=== PATIENT | male | born 1985 | race Caucasian/White ===

== ENCOUNTER 2016-07-19 10:21 | Emergency (ER) | payer OTHER ==
[~2016-07-19] VITALS: Ht 177.8 cm; Wt 113.8 kg
[~2016-07-19 10:21] MED LIST: DOMP10T PO; PRILOSEC40 MG PO
[2016-07-19 12:21] VITALS: BP 135/77
== END 2016-07-19 12:24 | disposition home or self-care (01) ==
LOC: EME 10:21
DX: S06.0X9A Concussion with loss of consciousness of unspecified duration, initial encounter (principal); Y04.2XXA Assault by strike against or bumped into by another person, initial encounter; Y99.0 Civilian activity done for income or pay
CPT/HCPCS: 70450; 99281; 99284

== ENCOUNTER 2017-09-11 10:00 | Emergency (ER) | payer OTHER ==
[~2017-09-11] VITALS: Ht 177.8 cm; Wt 116.1 kg
[2017-09-11 10:53] LABS: APPEARANCE CLOUDY ((CLEAR)); BILIRUBIN NEGATIVE; BLOOD SMALL; COLOR YELLOW ((YELLOW)); GLUCOSE (STRIP) NEGATIVE; KETONES NEGATIVE; LEUKOCYTES NEGATIVE; NITRITE NEGATIVE; PROTEIN (STRIP) 100; SPECIFIC GRAVITY 1.021 (1.000-1.030); UROBILINOGEN 0.2 MG/DL (0.2-1.0)
[2017-09-11 10:53] LABS: BASOPHIL (%) 0.4 % (0-1); EOSINOPHIL (%) 1.7 % (0-5); EOSINOPHIL COUNT 0.1 K/uL (0-0.3); HEMATOCRIT 45.1 % (38.0-50.0); HEMOGLOBIN 16.4 G/DL (12.5-16.6); IMMATURE GRANULOCYTE (%) 0.3 % (0.0-0.7); LYMPHOCYTE (%) 33.4 % (15-42); LYMPHOCYTE COUNT 2.5 K/uL (1.0-2.8); MCH 29.1 PG (29.0-34.0); MCHC 36.4 G/DL (30.0-36.0); MCV 80.1 FL (86-99); MONOCYTE (%) 7.2 % (3-12); MONOCYTE COUNT 0.5 K/uL (0-0.8); NEUTROPHIL COUNT 4.3 K/uL (1.8-6.4); PLATELET COUNT 239 K/uL (156-360); RBC DIS.WIDTH-CV 12.7 % (11.8-14.6); RBC DIS.WIDTH-SD 36.4 % (39-53); RED BLOOD COUNT 5.63 M/uL (4.00-5.50); WHITE BLOOD COUNT 7.5 K/uL (4.1-10.2)
[2017-09-11 11:03] LABS: BACTERIA NONE SEEN /HPF; EPITHELIAL CELLS RARE /HPF; MUCUS 1+ /LPF; RED BLOOD CELLS 30-40 /HPF (0-5); WHITE BLOOD CELLS 0-5 /HPF (0-5)
[2017-09-11 11:11] LABS: CHLORIDE 107 mEq/L (99-109); SODIUM 141 mEq/L (136-147)
[2017-09-11 11:13] LABS: GLUCOSE 127 mg/dL (70-99)
[2017-09-11 11:17] LABS: CREATININE 1.2 mg/dL (0.6-1.3); GFR ESTIMATE (CALCULATED) > 59 mL/min/ (58.99-99999); UREA NITROGEN (BUN) 12 mg/dL (9-23)
[2017-09-11] MEDS ORDERED: FLOMAX0.4 MG PO (13:38)
[2017-09-11] MEDS ORDERED: PERCOCET 5/31 TABLET PO (13:38)
[2017-09-11] MEDS ORDERED: ZOFRAN4 MG PO (13:38)
[2017-09-11 14:00] VITALS: BP 132/78
== END 2017-09-11 15:09 | disposition home or self-care (01) ==
LOC: EME 10:00
PROVIDERS: Emergency Medicine
DX: N13.2 Hydronephrosis with renal and ureteral calculous obstruction (principal); K21.9 Gastro-esophageal reflux disease without esophagitis
CPT/HCPCS: 74176; 80048; 81003; 85025; 99281; 99285; J1885; J2405; J3010; J7030